=== PATIENT | female | born 1945 | race Caucasian/White ===

== ENCOUNTER 2021-08-19 18:00 | Emergency (ER) | payer MEDICARE, OTHER ==
[2021-08-19 18:20] VITALS: TEMP 97.5; BMI 21.3
[2021-08-19] MEDS ORDERED: ACETAMINOPHEN 500 MG TABLET (FP) PO ONE (19:40)
[2021-08-19] MEDS ORDERED: ACETAMINOPHEN 325 MG TABLET (FP) ONE (19:43)
[2021-08-19] MEDS ORDERED: KETOROLAC TROMETHAMINE 30 MG/1 ML VIAL IM ONE (23:08)
[2021-08-19] MEDS ORDERED: KETOROLAC TROMETHAMINE 30 MG/1 ML VIAL ONE (23:10)
[2021-08-19 23:26] VITALS: BP 128/64; PULSE 82
== END 2021-08-19 23:26 | disposition home or self-care (01) ==
LOC: JER 18:00
PROC: 3E023GC Introduction of Other Therapeutic Substance into Muscle, Percutaneous Approach (ICD-10-PCS; principal; 2021-08-19)
DX: S52.501A Unspecified fracture of the lower end of right radius, initial encounter for closed fracture (principal); W19.XXXA Unspecified fall, initial encounter
CPT/HCPCS: 70450-TC; 71045-TC-FY; 72125-TC; 73110-TC-RT-FY; 73130-TC-RT-FY; 73562-TC-LT-FY; 82962; 96372; 99285-25

== ENCOUNTER 2021-08-22 11:06 | Observation (INO) | payer MEDICARE, OTHER ==
[2021-08-22 11:25] VITALS: TEMP 97.9; BMI 24.2
[2021-08-22 12:20] LABS: BASO % 0.2 % (0-2.0); EOS % 0.9 % (0-4.5); HEMATOCRIT 37.1 % (32.4-45.2); HEMOGLOBIN 11.8 GM/dL (10.7-15.3); LYMPH % 22.8 % (8-40); MCH 25.7 pg (25.7-33.7); MCHC 31.9 g/dl (32.0-36.0); MEAN CELL VOLUME 80.6 fl (80-96); MEAN PLT VOLUME 7.6 fl (7.5-11.1); MONO % 6.4 % (3.8-10.2); NEUT % 69.7 % (42.8-82.8); PLATELET COUNT 297 10^3/uL (134-434); RDW 15.5 % (11.6-15.6); WHITE BLOOD COUNT 7.3 K/mm3 (4.0-10.0)
[2021-08-22 12:27] LABS: INR 1.02 (0.83-1.09); PROTHROMBIN TIME (PATIENT) 11.7 SEC (9.7-13.0)
[2021-08-22 12:45] LABS: CALCIUM 10.4 mg/dL (8.5-10.1)
[2021-08-22 12:47] LABS: ALBUMIN 3.7 g/dl (3.4-5.0); BLOOD UREA NITROGEN 11.6 mg/dL (7-18)
[2021-08-22 12:50] LABS: CREATININE 0.6 mg/dL (0.55-1.3)
[2021-08-22 12:51] LABS: BILIRUBIN,TOTAL 0.6 mg/dL (0.2-1)
[2021-08-22 12:52] LABS: TOT PROT 6.9 g/dl (6.4-8.2)
[2021-08-22 15:32] VITALS: BP 130/79; PULSE 79
== END 2021-08-22 18:32 | disposition home or self-care (01) ==
LOC: JER 11:06 → JERBED 15:34
PROVIDERS: ADMIT Internal Medicine; ATTEND Internal Medicine
DX: R07.9 Chest pain, unspecified (principal); I10 Essential (primary) hypertension; M25.512 Pain in left shoulder; W18.39XA Other fall on same level, initial encounter; Y92.89 Other specified places as the place of occurrence of the external cause; Y93.89 Activity, other specified; Z46.89 Encounter for fitting and adjustment of other specified devices; Z98.890 Other specified postprocedural states
CPT/HCPCS: 36415; 70450-TC; 71045-TC-FY; 80053; 82962; 84484; 85025; 85610; 85730; 93005; 93010; 99285-25; G0378